=== PATIENT | female | born 1975 | race Caucasian/White ===

== ENCOUNTER 2017-05-06 10:22 | Emergency (ER) | payer SELFPAY ==
--- NOTE | 2017-05-06 10:50 | ER Document Report ---
HPI - HPI Pain Level: 3 Notes: Patient is a 42-year-old female who presents the ED complaining of right shoulder pain 2 days. Patient states that she was helping a heavy girl during gymnastics and believes that she strained her shoulder during that time, but the pain developed gradually thereafter. Patient states that she does have a history of injuring that right shoulder in the past. Patient states that the pain feels similar but a little more intense than before. Patient states that she has difficulty moving her shoulder through range of motion because of the pain. She has not noticed any swelling, warmth, or bruising. She has not noticed any numbness or tingling. The pain does not radiate and is described as an ache and occasional sharp pain. Patient reports being a former smoker and denies any drug allergies or IV drug use. Denies any other significant past medical history. Denies any headache, fever, head injury, neck pain, URI, sore throat, chest pain, palpitations, syncope, cough, shortness of breath, wheeze, dyspnea, abdominal pain, nausea/vomiting/diarrhea,dysuria, hematuria, or rash. - ROS Notes: REVIEW OF SYSTEMS: CONSTITUTIONAL : Denies fever, chills, or sweats. Denies recent illness. EENT: Denies eye, ear, throat, or mouth pain or symptoms. Denies nasal or sinus congestion or discharge. Denies throat, tongue, or mouth swelling or difficulty swallowing. CARDIOVASCULAR: Denies chest pain. Denies palpitations or racing or irregular heart beat. Denies ankle edema. RESPIRATORY: Denies cough, cold, or chest congestion. Denies shortness of breath, difficulty breathing, or wheezing. GASTROINTESTINAL: Denies abdominal pain or distention. Denies nausea, vomiting , or diarrhea. Denies blood in vomitus, stools, or per rectum. Denies black, tarry stools. Denies constipation. GENITOURINARY: Denies difficulty urinating, painful urination, burning, frequency, blood in urine, or discharge. MUSCULOSKELETAL: see hpi SKIN: Denies rash, lesions or sores. NEUROLOGICAL: Denies confusion or altered mental status. Denies passing out or loss of consciousness. Denies dizziness or lightheadedness. Denies headache. Denies weakness or paralysis or loss of use of either side. Denies problems with gait or speech. Denies sensory loss, numbness, or tingling. ALL OTHER SYSTEMS REVIEWED AND NEGATIVE. Dictation was performed using [employer] voice recognition software Past Medical History - Social History Smoking Status: Former Smoker Family History: Reviewed & Not Pertinent Renal/ Medical History: Denies: Hx Peritoneal Dialysis Vertical Provider Document - CONSTITUTIONAL Agree With Documented VS: Yes Notes: PHYSICAL EXAMINATION: GENERAL: Well-appearing, well-nourished and in no acute distress. NECK: Normal range of motion, supple without lymphadenopathy. No rigidity. No tenderness. Spurling neg. LUNGS: Breath sounds clear to auscultation bilaterally and equal. No wheezes rales or rhonchi. HEART: Regular rate and rhythm without murmurs, rubs, gallops. Musculoskeletal: Rt shoulder: LROM to passive/active. Strength 4+/5 to internal rotation, flexion, abduction, extension. + tenderness to the anterior shoulder. N/V intact distal. Extremities: No cyanosis, clubbing, or edema b/l. Peripheral pulses 2+. Capillary refill less than 3 seconds. NEUROLOGICAL: Normal speech, normal gait. Normal sensory, motor exams PSYCH: Normal mood, normal affect. SKIN: Warm, Dry, normal turgor, no rashes or lesions noted. - INFECTION CONTROL TRAVEL OUTSIDE OF THE [place] IN LAST 30 DAYS: No - RESPIRATORY O2 Sat by Pulse Oximetry: 98 Course - Re-evaluation Re-evalutation: 05/06/17 11:30 Patient is an afebrile, well-hydrated, 42-year-old female who presents to the ED with right shoulder pain, suspect inflammatory at this time. Vitals are stable. PE otherwise unremarkable for any focal neurological deficits. X-ray was unremarkable for any acute pathology. Low suspicion/risk for any septic joint, sepsis, disc herniation causing severe spinal stenosis, fracture, or dislocation. Patient is aware that her condition can change from initial presentation and she needs to monitor symptoms closely and seek medical attention if any acute changes. Toradol 30 mg is given IM today. I will send her home with a prescription for naproxen. Conservative measures for symptoms otherwise. Recheck with your PCM in 2-3 days. Schedule consult with orthopedics/physical therapy for further evaluation. Return to the ED with any worsening/concerning symptoms otherwise as reviewed in discharge. Patient is in agreement. Sling provided today. - Vital Signs Vital signs: Temp Pulse Resp BP Pulse Ox 98.7 F 87 17 143/96 H 98 05/06/17 10:23 05/06/17 10:23 05/06/17 10:23 05/06/17 10:23 05/06/17 10:23 Discharge - Discharge Clinical Impression: Right shoulder pain Qualifiers: Chronicity: acute Qualified Code(s): M25.511 - Pain in right shoulder Condition: Stable Disposition: HOME, SELF-CARE Instructions: Ice Packs ([facility]), Exercise Program for the Shoulder ([facility]), Shoulder Injury ([facility]), Temporary Sling ([facility]), Warm Packs ([facility]) Additional Instructions: Rest, Ice, Compression, Elevation Use sling as directed Tylenol/ibuprofen as needed Light stretches daily May begin naproxen tomorrow morning Strength exercises as able Moist heat and massage may help F/u with your PCP in 2-3 days for a recheck Consider consult(s) with Orthopedics/physical therapy for ongoing/worsening symptoms Return to the ED with any worsening symptoms and/or development of fever, headache, chest pain, palpitations, syncope, shortness of breath, trouble breathing, abdominal pain, n/v/d, muscle weakness/paralysis, numbness/tingling, swelling, redness, or other worsening symptoms that are concerning to you. Prescriptions: Naproxen 500 mg PO BID PRN #30 tablet PRN Reason: Forms: Elevated Blood Pressure Referrals: [facility] ([facility] [Provider Group] - Follow up in 1 week
[2017-05-06] MEDS ORDERED: KETOROLAC TROMETHAMINE INJ/PF 30 MG/1 ML SDV IM ONE (11:06)
--- NOTE | 2017-05-06 11:29 | RADIOLOGY REPORT (SQ) ---
EXAM DESCRIPTION: SHOULDER RIGHT 2 OR MORE VIEWS COMPLETED DATE/TIME: 05/06/2017 11:15 am REASON FOR STUDY: right shoulder pain COMPARISON: None. NUMBER OF VIEWS: Three views. TECHNIQUE: Internal rotation, external rotation, and Y view images acquired of the right shoulder. LIMITATIONS: None. FINDINGS: MINERALIZATION: Normal. BONES: No acute fracture or dislocation. No worrisome bone lesions. JOINTS: No dislocation. VISUALIZED LUNGS AND RIBS: No pneumothorax. No rib fracture. SOFT TISSUES: No radiopaque foreign body. OTHER: No other significant finding. IMPRESSION: NEGATIVE STUDY OF THE RIGHT SHOULDER. NO RADIOGRAPHIC EVIDENCE OF ACUTE INJURY. TECHNICAL DOCUMENTATION: JOB ID: [id number] [employer]- All Rights Reserved
[2017-05-06 11:56] VITALS: BP 134/84
== END 2017-05-06 11:48 | disposition home or self-care (01) ==
LOC: ER 10:22
DX: M25.511 Pain in right shoulder (principal); Z87.828 Personal history of other (healed) physical injury and trauma; Z87.891 Personal history of nicotine dependence
CPT/HCPCS: 99283; 96372; 73030; J1885